=== PATIENT | male | born 1955 | race Caucasian/White ===

== ENCOUNTER 2018-01-29 20:34 | Inpatient (IN) | payer OTHER ==
[~2018-01-29] VITALS: Ht 172.7 cm; Wt 76.2 kg
[~2018-01-29 20:34] MED LIST: BENA40TA PO; IBUP-974 PO; WARF-18 PO
--- NOTE | 2018-01-29 20:40 | NUR ---
BIBA TO ER BED 2
[2018-01-29 20:50] VITALS: BP 142/99
[2018-01-29] MEDS ORDERED: LORazepam 2 MG/ML VIAL IVP ONE (21:00)
[2018-01-29] MEDS ORDERED: MULTIVITAMIN-12 10 ML, THIAMINE 100 MG, MAGNESIUM SULFATE 50% 2,000 MG, FOLIC ACID 5 MG... IV ONE ×5 (21:00)
--- NOTE | 2018-01-29 21:07 | NUR ---
BIBA FOR SHAKINESS AND WEAKNESS X 2 WEEKS. BS 128 ON SCENE.DENIES N/V/D; AAOX4 WITH EVEN AND STEADY GAIT; LUNGS CLEAR BL; PATIENT STATES PAIN OF 0/10 AT THIS TIME; PATIENT POSITIONED FOR COMFORT; HOB ELEVATED; BEDRAILS UP X2; BED DOWN. ER MD MADE AWARE OF PT STATUS.
[2018-01-29] MEDS ORDERED: THIAMINE 200 MG/2 ML VIAL ONE (21:12)
[2018-01-29] MEDS ORDERED: MAGNESIUM SULFATE 50% 1000 MG/2 ML VIAL IV ONE (21:12)
[2018-01-29] MEDS ORDERED: FOLIC ACID 5 MG/ML SYR ONE (21:12)
[2018-01-29] MEDS ORDERED: MULTIVITAMIN-12 10 ML VIAL IV ONE (21:12)
[2018-01-29 21:28] LABS: BARBITURATE, URINE NEG. ng/ml (NEG <=200); BENZODIAZEPINE, URINE NEG. ng/mL (NEG <=200); CANNABINOID, URINE NEG. ng/mL (NEG <=50); COCAINE, URINE NEG. ng/mL (NEG <=300); OPIATE, URINE NEG. ng/mL (NEG <=2000); PHENCYCLIDINE SCREEN,URINE NEG. ng/mL (NEG <=25)
[2018-01-29 22:10] LABS: ANION GAP 17.6 (8-16); CARBON DIOXIDE 28.4 mmol/L (21-32); CHLORIDE 98 mmol/L (98-107); CREATININE 0.9 mg/dL (0.7-1.3); GFR ARICAN-AMERICAN 111 mL/min (>90); GLUCOSE 103 mg/dL (74-106); SODIUM SERUM 141 mmol/L (136-145); UREA NITROGEN, BLOOD 18 mg/dL (7-18)
[2018-01-29 22:17] LABS: ALBUMIN 3.9 g/dL (3.4-5.0); ASPARTATE AMINOTRANSFERASE 110 U/L (15-37); TOTAL BILIRUBIN 1.7 mg/dL (0.0-1.0)
[2018-01-29 22:20] LABS: ACETAMINOPHEN < 0.5 ug/ml (10-30); PROTHROMBIN TIME 12.6 secs (10.8-13.4); SALICYLATE < 2.8 mg/dL (2.8-20.0)
[2018-01-29] MEDS ORDERED: POTASSIUM CHLORIDE 10 MEQ TABER PO ONE (22:30)
[2018-01-29 22:34] LABS: HEMATOCRIT 38.8 % (36-52); HEMOGLOBIN 13.5 g/dL (12.0-18.0); MEAN CORPUSCULAR VOLUME 99 fL (80-94); RED BLOOD CELL COUNT(AUTO) 3.93 MIL/uL (4.20-6.10); WHITE BLOOD COUNT (AUTO) 5.7 K/uL (4.8-10.8)
[2018-01-29 22:35] LABS: MEAN CORPUSCULAR HEMOGLOBIN 34 pg (27-31); MEAN CORPUSCULAR HGB CONC 35 g/dL (33-37); PLATELET COUNT (AUTO) 56 K/uL (140-450); RED CELL DISTRIBUTION WIDTH 12.7 % (11.6-13.7)
[2018-01-29 22:36] LABS: BASOPHILS % (AUTO) 0.2 % (0.0-2.0); LYMPHOCYTES # (AUTO) 0.3 K/uL (2.0-11.5); LYMPHOCYTES % (AUTO) 5.7 % (20.5-51.1); MONOCYTES % (AUTO) 13.1 % (1.7-9.3); NEUTROPHILS # (AUTO) 4.6 K/uL (1.8-7.7)
[2018-01-29 22:37] LABS: MONOCYTES # (AUTO) 0.8 K/uL (0.8-1.0)
[2018-01-29] MEDS ORDERED: KETOROLAC 30 MG/ML VIAL IVP PRN (23:00)
[2018-01-29] MEDS ORDERED: HYDROcodone/APAP 7.5/325 MG 1 TAB PO PRN (23:00)
[2018-01-29] MEDS ORDERED: ACETAMINOPHEN 325 MG TAB PO PRN (23:00)
[2018-01-29] MEDS ORDERED: DOCUSATE SODIUM 100 MG GELCAP PO PRN (23:00)
[2018-01-29] MEDS ORDERED: ONDANSETRON 4 MG/2 ML VIAL IM/IVP PRN (23:00)
--- NOTE | 2018-01-29 23:09 | NUR ---
ICU CHARGE NURSE ROSA CALLING [facility] FOR PT TO BE PUT ON ER HOLD.
[2018-01-29 23:29] LABS: APPEARANCE,URINE CLEAR (CLEAR); BILIRUBIN,URINE 1+ (NEGATIVE); BLOOD, URINE 3+ (NEGATIVE); COLOR,URINE ORANGE (YELLOW); LEUKOCYTE ESTERASE ,URINE NEGATIVE (NEGATIVE); NITRITE, URINE POSITIVE (NEGATIVE); UGLUCOSE NEGATIVE (NEGATIVE)
--- NOTE | 2018-01-29 23:34 | NUR ---
ER DELAY ICU HOLD
[2018-01-29 23:55] LABS: CHOL/HDL RATIO 1.6 (1-4.5); MAGNESIUM 1.5 mg/dL (1.8-2.4); PHOSPHORUS 2.7 mg/dL (2.5-4.9); THYROID STIMULATING HORMONE 2.14 uIU/mL (0.34-3.74)
[2018-01-30 00:16] LABS: RBC,URINE 3-10 (FEW) /HPF (0-5)
[2018-01-30 00:17] LABS: HYALINE CASTS, URINE 0-10 /LPF (None Seen); WBC,URINE 0-5 (RARE) /HPF (0-5)
--- NOTE | 2018-01-30 00:20 | NUR ---
ADMITTED THIS 62 YEAR OLD MALE PATIENT FROM ER PER [facility] DUE TO GENERALIZED BODY WEAKNESS AND SHAKINESS WITH THE ADMITTING DIAGNOSIS OF ETOH WITHDRAWAL; ASSISTED TO ICU 3; HOOKED TO VEGETABLE GROWER. ADMISSION ASSESSMENT/PROTOCOL DONE. PATIENT IS AWAKE, ALERT, ORIENTED X3. CARDIACSCOPE SHOWS ON SINUS RHYTHM HR 90/MIN NO ARRHYTHMIAS SEEN. WITH BANANA BAG IN PROGRESS AT 250 ML/HR VIA G 18 IV CANNULA ON RIGHT WRIST PATENT AND INTACT. BREATHING EVEN AND UNLABORED, ON ROOM AIR. ABDOMEN IS SOFT, NON TENDER; ACTIVE BOWEL SOUNDS. NOTED WITH SHAKING OF BOTH ARMS. WITH BLISTER NOTED ON LEFT GREAT TOE AND SCAB ON RIGHT BIG TOE. MRSA SCREENING OF BOTH NARES, SENT PER PROTOCOL.
--- NOTE | 2018-01-30 01:00 | NUR ---
SEEN AND EXAMINED BY DR. GODOY AND NOTED TO HIM PATIENT'S SKIN ISSUE ON BOTH GREAT TOE;NO NEW ORDER MADE.
[2018-01-30] MEDS: NACL 0.9% 1,000 ML IV SCH ×3 (01:59→18:42)
[2018-01-30] MEDS ORDERED: traZODone 50 MG TAB PO SCH (02:00)
[2018-01-30] MEDS ORDERED: ZOLPIDEM 5 MG TAB PO PRN (02:45)
[2018-01-30 04:00] VITALS: BP 133/75
--- NOTE | 2018-01-30 04:27 | NUR ---
CT HEAD WITHOUT CONTRAST CAN BE DONE IN THE DAY SHIFT ORDERED BY DR. GODOY.
[2018-01-30] MEDS: LORazepam 1 MG TAB PO SCH ×3 (04:41→20:12)
[2018-01-30 05:59] VITALS: BP 146/96
[2018-01-30 06:00] LABS: ANION GAP 14.3 (8-16); CARBON DIOXIDE 29.9 mmol/L (21-32); CREATININE 0.8 mg/dL (0.7-1.3); POTASSIUM 3.2 mmol/L (3.5-5.1)
[2018-01-30 06:40] LABS: WHITE BLOOD COUNT (AUTO) 4.6 K/uL (4.8-10.8)
[2018-01-30 06:41] LABS: HEMATOCRIT 37.5 % (36-52); MEAN CORPUSCULAR HEMOGLOBIN 34 pg (27-31); MEAN CORPUSCULAR HGB CONC 35 g/dL (33-37); MEAN CORPUSCULAR VOLUME 99 fL (80-94); PLATELET COUNT (AUTO) 55 K/uL (140-450); RED BLOOD CELL COUNT(AUTO) 3.77 MIL/uL (4.20-6.10); RED CELL DISTRIBUTION WIDTH 12.8 % (11.6-13.7)
[2018-01-30 06:42] LABS: BASOPHILS % (AUTO) 0.5 % (0.0-2.0); EOSINOPHILS % (AUTO) 0.4 % (0.0-4.0); LYMPHOCYTES # (AUTO) 0.9 K/uL (2.0-11.5); LYMPHOCYTES % (AUTO) 19.6 % (20.5-51.1); MONOCYTES # (AUTO) 0.7 K/uL (0.8-1.0); MONOCYTES % (AUTO) 14.9 % (1.7-9.3); NEUTROPHILS % (AUTO) 64.6 % (42.2-75.2)
--- NOTE | 2018-01-30 07:30 | NUR ---
OBTAINED REPORT FROM ROSA RN AT BEDSIDE, PT IS AAOX4, ABLE TO FOLLOW COMMANDS AND MAKE NEEDS KNOWN, HANDS SHAKING NOTED, VSS, DENIES PAIN, NO S/S OF DISTRESS, CLEAR LUNG SOUNDS, ON RA, SR ON TELE MONITOR, DENIES CP, SOFT ABDOMEN WITH ACTIVE BOWEL SOUNDS, CONTINENT WITH B&B'S, SEVERER WEAKNESS TO BLE NOTED, IV SITE TO RIGHT WRIST 18GA, RUNNING NS AT 120ML/HR, SKIN IS WARM AND DRY TO TOUCH, OPEN BLISTER NOTED TO LEFT GREAT TOE. EXPLAINED THE POC TO PT, PT VERBALIZED UNDERSTANDING, SAFETY MEASURE IN PLACE, HOB ELEVATED, CALL LIGHT WITHIN REACH, WILL CONTINUE TO MONITOR.
[2018-01-30 08:00] VITALS: BP 105/67
[2018-01-30] MEDS ORDERED: POTASSIUM CHLORIDE 40 MEQ, LIDOCAINE 1% 25 MG in NACL 0.9% 250 ML IV SCH (08:00)
[2018-01-30] MEDS: FOLIC ACID 1 MG TAB PO SCH (08:16)
[2018-01-30] MEDS: MULTIVITAMIN 1 TAB PO SCH (08:17)
[2018-01-30] MEDS: THIAMINE 100 MG TAB PO SCH (08:17)
[2018-01-30] MEDS: LORazepam 1 MG TAB PO PRN ×3 (08:20→16:58)
--- NOTE | 2018-01-30 08:56 | NUR ---
PATIENT HAS BEEN SCREENED AND CATEGORIZED LOW NUTRITION RISK. PATIENT WILL BE SEEN WITHIN 7 DAYS OF ADMISSION. 02/04/[address] Addendum: 02/03/18 at [address] D/T CHANGE IN PATIENT DIET, PATIENT HAS BEEN RESCREENED AND RECATEGORIZED MODERATE NUTRITION RISK. PATIENT WILL BE SEEN WITHIN 3-5 DAYS OF ADMISSION. 02/01/18 - 02/03/[address]
[2018-01-30] MEDS ORDERED: BENAZEPRIL 5 MG TAB PO SCH (09:00)
[2018-01-30] MEDS ORDERED: POTASSIUM CHLORIDE 10 MEQ TABER PO SCH (09:00)
--- NOTE | 2018-01-30 09:00 | NUR ---
SCHEDULED MEDICATION GIVEN ORDERED, PT IS SHAKING, VERY WEAK, COULD NOT GET UP THE BED. ATIVAN GIVEN, PT TOLERATED WELL.
--- NOTE | 2018-01-30 09:45 | NUR ---
PT TOOK TO CT VIA BED WITH RN AND AEROBICS TEACHER AT BEDSIDE.
[2018-01-30 12:00] VITALS: BP 160/54
[2018-01-30] MEDS: LORazepam 2 MG/ML VIAL IM/IVP PRN ×2 (14:00→21:40)
--- NOTE | 2018-01-30 14:00 | NUR ---
PT HAVING SYMPTOM OF ALCOHOL WITHDRAW, SHAKING AND UNABLE TO FOLLOW COMMANDS, KICKING AND TALKING DIRTY WORDS, TRYING TO GET OUT THE BED, MD AWARE, ATIVAN GIVEN.
[2018-01-30] MEDS ORDERED: MIDAZOLAM 2 MG/2 ML VIAL IM ONE (14:35)
[2018-01-30] MEDS ORDERED: LORazepam 2 MG/ML VIAL IM SCH ×2 (14:37→15:34)
--- NOTE | 2018-01-30 14:40 | NUR ---
DR. MCPHERSON CAME TO EVALUATE PT, PT IS STILL SHAKING, KICKING, AND TRYING TO GET OUT OF BED, ANOTHER DOSE OF ATIVAN GIVEN ORDERED, WILL CONTINUE TO MONITOR.
[2018-01-30 16:00] VITALS: BP 159/83
--- NOTE | 2018-01-30 16:30 | NUR ---
PT IS EVERY AGITATED, PULLED OUT IV SITE, KICKING AND RESTLESSNESS, ATIVAN GIVEN THIRD DOSE, USED TWO POINT SOFT WRIST RESTRAIN AT THIS TIME TO PROTECT PT TO HURT HIMSELF AND OTHERS.
[2018-01-30] MEDS: WARFARIN 5 MG TAB PO SCH (16:57)
--- NOTE | 2018-01-30 19:15 | NUR ---
RECEIVED REPORT FROM TING MCQUEEN FOR CONTINUITY OF CARE. VS STABLE AT THIS TIME. PT ASLEEP. OPENS EYES TO NAME. PT AFEBRILE. SR ON MONITOR. PULSES PALPABLE IN EXTREMITIES. PT IN ROOM AIR. LUNG SOUNDS CLEAR. NO SIGN OF RESPIRATORY DISTRESS NOTED. ABDOMEN ROUND, SOFT AND NONDISTENDED. PT HAS RIGHT WRIST PERIPHERAL IV 18G. LINE PATENT AND ASYMPTOMATIC. PT HAS IVF NS RUNNING. BED AT LOW POSSIBLE POSITION. HOB 30 DEGREES. RECEIVE PT ON RESTRAINTS NO SIGNS OF INJURY NOTED. WILL CONTINUE TO MONITOR PT.
[2018-01-30 20:00] VITALS: BP 143/91
[2018-01-30] MEDS: traZODone 50 MG TAB PO SCH (20:14)
[2018-01-30] MEDS: POTASSIUM CHLORIDE 10 MEQ TABER PO SCH (20:14)
--- NOTE | 2018-01-30 20:40 | NUR ---
ABDOMINAL US ATTEMPTED TO BE DONE, BUT PT KEPT REFUSING AND BECAME INCREASINGLY AGITATED. PT ATTEMPTED TO KICK STAFF. PT KEPT SHAKING AND PER US TECH, THE IMAGE MAY NOT COME OUT RIGHT AND MAY NOT BE FINISHED SINCE PT IS INCREASINGLY AGITATED. WILL TRY AGAIN IN THE MORNING TO GET US.
--- NOTE | 2018-01-30 21:25 | NUR ---
PT INCREASINGLY AGITATED. PT RESTLESS AND TRYING TO KICK NURSES. PT ALSO CUSSING AT NURSES. MADE AWARE.
[2018-01-30] MEDS ORDERED: LORazepam 2 MG/ML VIAL ONE (21:43)
[2018-01-31] VITALS: BP 143/90
--- NOTE | 2018-01-31 00:20 | NUR ---
PT ASLEEP. STILL HAS RESTRAINTS IN PLACE. NO INJURY NOTED. VS STABLE AT THIS TIME. NO CHANGE IN CONDITION. ALL SAFETY PRECAUTIONS ARE IN PLACE. WILL CONTINUE TO MONITOR PT.
[2018-01-31] MEDS: LORazepam 2 MG/ML VIAL IM/IVP PRN (02:02)
--- NOTE | 2018-01-31 02:18 | NUR ---
PT VS STABLE AT THIS TIME. NO SIGNS OF PAIN OR DISTRESS NOTED. SR ON MONITOR. PT STILL ON RESTRAINTS. NO SIGNS OF INJURY NOTED. ALL SAFETY PRECAUTIONS ARE IN PLACE. WILL CONTINUE TO MONITOR PT.
[2018-01-31 04:00] VITALS: BP 145/98
--- NOTE | 2018-01-31 04:30 | NUR ---
PT CLEANED AND LINENS CHANGED. PT HAD NO BM THROUGHOUT SHIFT. PT STILL ON RESTRAINTS. PT BEING COMBATIVE AND HAD TO PAGE SECURITY TO ASSIST WITH THE PT. AFTER CLEANING UP THE PT, THE PT CALMED DOWN. PT FELL ASLEEP
[2018-01-31] MEDS: NACL 0.9% 1,000 ML IV SCH ×2 (05:43→22:33)
[2018-01-31] MEDS: LORazepam 1 MG TAB PO SCH ×3 (05:52→21:19)
--- NOTE | 2018-01-31 05:55 | NUR ---
PT TRANSFERRED TO [facility]/TELE. REPORT GIVEN TO SNOW MAGUIRE FOR CONTINUITY OF CARE.
[2018-01-31 06:05] VITALS: BP 113/81
--- NOTE | 2018-01-31 06:05 | NUR ---
RECEIVED REPORT FROM AM NURSE. PT RESTING COMFORTABLY IN BED, AOX3, BEDREST AT THIS TIME WITH GENERALIZED WEAKNESS. SLIGHT TREMORS NOTED. MINESWEEPING OFFICER IN PLACE. RR 16 EVEN AND UNLABORED, SPO2 97% ON ROOM AIR. NO S/S OF ACUTE DISTRESS. PT WAS COMBATIVE IN ICU, SOFT WRIST RESTRAINTS REMOVED AT THIS TIME DUE TO PT CALM WITH EDUCATION AND SLEEPING COMFORTABLY. IV ACCESS ASYMPTOMATIC, PATENT AND INTACT, WILL ADMINISTER IVF ORDERED. DISCUSSED AND REVIEWED PLAN OF CARE WITH PT, PT NODDED IN AGREEMENT. ALL NEEDS MET. SAFETY MEASURES ENSURED. CALL LIGHT WITHIN REACH.
[2018-01-31 06:17] LABS: T4 (THYROXINE) 6.3 ug/dL (4.5-12.0)
[2018-01-31 06:52] LABS: BASOPHILS # (AUTO) 0.3 K/uL (0.00-0.22); BASOPHILS % (AUTO) 4.7 % (0.0-2.0); EOSINOPHILS % (AUTO) 0.7 % (0.0-4.0); HEMATOCRIT 42.6 % (36-52); HEMOGLOBIN 14.5 g/dL (12.0-18.0); LYMPHOCYTES # (AUTO) 1.2 K/uL (2.0-11.5); LYMPHOCYTES % (AUTO) 20.4 % (20.5-51.1); MEAN CORPUSCULAR HEMOGLOBIN 34 pg (27-31); MEAN CORPUSCULAR HGB CONC 34 g/dL (33-37); MEAN CORPUSCULAR VOLUME 100 fL (80-94); MONOCYTES # (AUTO) 0.9 K/uL (0.8-1.0); MONOCYTES % (AUTO) 14.6 % (1.7-9.3); NEUTROPHILS # (AUTO) 3.5 K/uL (1.8-7.7); NEUTROPHILS % (AUTO) 59.6 % (42.2-75.2); RED BLOOD CELL COUNT(AUTO) 4.25 MIL/uL (4.20-6.10); RED CELL DISTRIBUTION WIDTH 11.9 % (11.6-13.7); WHITE BLOOD COUNT (AUTO) 5.9 K/uL (4.8-10.8)
[2018-01-31 06:53] LABS: PLATELET COUNT (AUTO) 57 K/uL (140-450)
--- NOTE | 2018-01-31 07:10 | NUR ---
RECEIVED PATIENT FROM NIGHTSHIFT NURSE. BEDSIDE REPORT WAS GIVEN AT BEDSIDE. PATIENT IS LAYING IN BED SLEEPING BUT AROUSABLE. REORIENTED PATIENT OF THE DATE TODAY. PATIENT BREATHING IS WITHIN NORMAL LIMITS AT THIS TIME. TREMORS ARE NOTED ON PATIENT'S UPPER EXTREMITIES AND BODY. PATIENT IS ON RESTRAINTS OF HIS WRISTS AND TIED TO THE BASE OF THE BED. PATIENT'S SKIN IS INTACT UPON TAKING OFF RESTRAINTS. PATIENT HAS AN IV NOTED ON HIS RIGHT WRIST 18G. NO SIGNS OF PAIN AT THIS TIME. UPDATED BOARD AND MADE SURE SIGNS ARE ON PATIENT'S DOOR. LOWERED BED TO LOWEST SETTING. WILL CONTINUE TO MONITOR PATIENT.
--- NOTE | 2018-01-31 07:10 | NUR ---
ENDORSED PLAN OF CARE TO AM NURSE. CONDITION STABLE.
[2018-01-31 07:32] LABS: PROTHROMBIN TIME 11.4 secs (10.8-13.4)
[2018-01-31 07:33] LABS: ANION GAP 14.5 (8-16); CREATININE 0.6 mg/dL (0.7-1.3); POTASSIUM 3.5 mmol/L (3.5-5.1)
[2018-01-31] MEDS ORDERED: BENAZEPRIL 5 MG TAB PO SCH (09:00)
--- NOTE | 2018-01-31 09:00 | NUR ---
PATIENT IS ASLEEP AT THIS TIME. BREATHING WITHIN NORMAL LIMITS AND NO SIGNS OF RESPIRATORY DISTRESS OR RESPIRATORY DEPRESSION. WILL CONTINUE TO MONITOR PATIENT.
[2018-01-31] MEDS: FOLIC ACID 1 MG TAB PO SCH (10:40)
[2018-01-31] MEDS: POTASSIUM CHLORIDE 10 MEQ TABER PO SCH ×2 (10:40→21:16)
[2018-01-31] MEDS: guaiFENesin 600 MG TABER PO SCH ×2 (10:41→21:17)
[2018-01-31] MEDS: MULTIVITAMIN 1 TAB PO SCH (10:41)
[2018-01-31] MEDS: BENAZEPRIL 20 MG TAB PO SCH (10:41)
[2018-01-31] MEDS: THIAMINE 100 MG TAB PO SCH (10:41)
[2018-01-31] MEDS: FLUTICASONE NASAL 50 MCG/ACTUATION 16 GM BTL NS SCH (10:59)
[2018-01-31] MEDS: AMOXIL/CLAVULANATE 875/125 MG 1 TAB PO SCH ×2 (11:01→21:17)
--- NOTE | 2018-01-31 11:54 | NUR ---
PATIENT IS AWAKE RIGHT NOW. PATIENT IS CONFUSED AND TRYING TO GET OUT OF BED. BED ALARM IS ON FOR PATIENT. WILL CONTINUE TO MONITOR PATIENT.
--- NOTE | 2018-01-31 13:30 | NUR ---
PATIENT RESTING IN BED. NO SIGNS OF PAIN OR RESPIRATORY DISTRESS. WILL CONTINUE TO MONITOR PATIENT.
--- NOTE | 2018-01-31 15:00 | NUR ---
PATIENT ASLEEP AT THIS TIME. PATIENT SHOWS NO SIGNS OF RESPIRATORY DISTRESS OR RESPIRATORY DEPRESSION. WILL CONTINUE TO MONITOR PATIENT.
[2018-01-31 16:00] VITALS: BP 126/80
--- NOTE | 2018-01-31 17:02 | NUR ---
TOOK PATIENT OFF RESTRAINTS. PATIENT IS ALERT AND ORIENTED X3 AT THIS TIME. INSTRUCTED PATIENT TO CALL IF HE NEEDS ASSISTANCE WITH ANYTHING. INSTRUCTED PATIENT TO NOT GET UP WITHOUT ANY ASSISTANCE. WILL CONTINUE TO MONITOR PATIENT.
[2018-01-31] MEDS: WARFARIN 5 MG TAB PO SCH (18:24)
--- NOTE | 2018-01-31 18:24 | NUR ---
GAVE PATIENT EDUCATION ON WARF[place]IN AND WHAT HE SHOULD KNOW. PATIENT NEEDS REINFORCEMENT WITH TEACHINGS. HANDOUT GIVEN TO PATIENT. PATIENT UNABLE TO SIGN AT THIS TIME.
--- NOTE | 2018-01-31 19:22 | NUR ---
GAVE PATIENT REPORT TO NURSE AT BEDSIDE. PATIENT IN STABLE CONDITION.
--- NOTE | 2018-01-31 19:23 | NUR ---
RECEIVED BEDSIDE REPORT FROM DAY SHIFT NURSE JAMES MAGUIRE, PT STABLE, NO DISTRESS NOTED, IV TO R FA 22G RUNNING NS @ 60ML/HR, INFUSING WELL, PT ON ROOM AIR NO SOB, PT CALM AND COOPERATIVE, RESTING ON BED, INITIAL ASSESSMENT DONE, ALL SAFETY PRECAUTION MET, WILL CONTINUE TO MONITOR. Addendum: 01/31/18 at 2019 by Rosa Elena Rao RN PT NO LONGER ON RESTRAINTS. Addendum: 02/01/18 at 0638 by Rosa Elena Rao RN NOTED SCABS ON R ELBOW, HEALING.
--- NOTE | 2018-01-31 21:17 | NUR ---
DUE MEDICATION GIVEN, PT TOLERATED WELL, NO DISTRESS NOTED, CALL LIGHT WITHIN REACH, WILL CONTINUE TO MONITOR.
[2018-01-31] MEDS: traZODone 50 MG TAB PO SCH (21:18)
[2018-02-01] VITALS: BP 103/60
--- NOTE | 2018-02-01 00:01 | NUR ---
CHECKED ON PT, PT SLEEPING, NO DISTRESS NOTED, CALL LIGHT WITHIN REACH, WILL CONTINUE TO MONITOR.
--- NOTE | 2018-02-01 02:05 | NUR ---
CHECKED ON PT, PT SLEEPING, NO DISTRESS NOTED, CALL LIGHT WITHIN REACH, WILL CONTINUE TO MONITOR.
[2018-02-01] MEDS: LORazepam 1 MG TAB PO SCH ×3 (05:01→20:19)
--- NOTE | 2018-02-01 05:08 | NUR ---
PT C/O PAIN 07/03 ON THE R LEG, NO SWELLING, PT STABLE, NO DISTRESS, RESTING IN BED, NOTIFIED DR. TAMEZ, STATED WILL SEE PT AFTER, HE IS WITH ANOTHER PT. WILL CONTINUE TO MONITOR. Addendum: 02/01/18 at 0511 by Rosa Elena Rao RN WHEN ASKED PT STATED DOES NOT WANT TO TAKE TYLENOL BECAUSE TYLENOL DOES NOTHING FOR HIM.
--- NOTE | 2018-02-01 05:28 | NUR ---
DR. TAMEZ TALKED TO PT, STATED THAT HE WILL PUT IN ORDERS, IN THE MEAN TIME FOR PT TO TAKE TYLENOL, PT STATED UNDERSTANDING AND THAT HE WILL TAKE THE TYLENOL. TYLENOL GIVEN, PT TOLERATED WELL, NO DISTRESS NOTED, CALL LIGHT WITHIN REACH, WILL CONTINUE TO MONITOR.
[2018-02-01 06:58] LABS: BASOPHILS # (AUTO) 0.2 K/uL (0.00-0.22); BASOPHILS % (AUTO) 4.6 % (0.0-2.0); EOSINOPHILS # (AUTO) 0.1 K/uL (0-0.4); EOSINOPHILS % (AUTO) 1.6 % (0.0-4.0); HEMATOCRIT 35.4 % (36-52); HEMOGLOBIN 12.2 g/dL (12.0-18.0); LYMPHOCYTES # (AUTO) 0.8 K/uL (2.0-11.5); LYMPHOCYTES % (AUTO) 14.9 % (20.5-51.1); MEAN CORPUSCULAR HEMOGLOBIN 34 pg (27-31); MEAN CORPUSCULAR HGB CONC 35 g/dL (33-37); MEAN CORPUSCULAR VOLUME 99 fL (80-94); MONOCYTES # (AUTO) 0.9 K/uL (0.8-1.0); MONOCYTES % (AUTO) 17.5 % (1.7-9.3); NEUTROPHILS # (AUTO) 3.3 K/uL (1.8-7.7); NEUTROPHILS % (AUTO) 61.4 % (42.2-75.2); PLATELET COUNT (AUTO) 60 K/uL (140-450); RED BLOOD CELL COUNT(AUTO) 3.58 MIL/uL (4.20-6.10); RED CELL DISTRIBUTION WIDTH 11.9 % (11.6-13.7); WHITE BLOOD COUNT (AUTO) 5.3 K/uL (4.8-10.8)
--- NOTE | 2018-02-01 07:21 | NUR ---
ENDORSED PLAN OF CARE TO DAY SHIFT NURSE PATTI MAGUIRE, PT STABLE, NO DISTRESS NOTED, CALL LIGHT WITHIN REACH. Addendum: 02/01/18 at 0721 by Rosa Elena Rao RN JAMES MAGUIRE
--- NOTE | 2018-02-01 07:21 | NUR ---
RECEIVED PATIENT FROM NIGHTSHIFT NURSE. PATIENT IS ASLEEP BUT AROUSABLE. PATIENT'S BREATHING IS WITHIN NORMAL LIMITS. PATIENT SHOWS NO SIGNS OF PAIN. NO SIGNS OF WITHDRAWAL AT THIS TIME. PATIENT HAS CALL LIGHT WITHIN REACH. UPDATED BOARD OF PATIENT. WILL FREQUENTLY MONITOR PATIENT.
[2018-02-01 08:00] VITALS: BP 128/80
[2018-02-01 08:19] LABS: ANION GAP 12.6 (8-16); CARBON DIOXIDE 26.5 mmol/L (21-32); CREATININE 0.7 mg/dL (0.7-1.3); POTASSIUM 3.1 mmol/L (3.5-5.1)
[2018-02-01 08:21] LABS: PROTHROMBIN TIME 11.9 secs (10.8-13.4)
[2018-02-01] MEDS: BENAZEPRIL 20 MG TAB PO SCH (09:00)
[2018-02-01] MEDS: FOLIC ACID 1 MG TAB PO SCH (09:28)
[2018-02-01] MEDS: guaiFENesin 600 MG TABER PO SCH ×2 (09:29→20:18)
[2018-02-01] MEDS: THIAMINE 100 MG TAB PO SCH (09:29)
[2018-02-01] MEDS: MULTIVITAMIN 1 TAB PO SCH (09:29)
[2018-02-01] MEDS: AMOXIL/CLAVULANATE 875/125 MG 1 TAB PO SCH ×2 (09:30→20:17)
[2018-02-01] MEDS: FLUTICASONE NASAL 50 MCG/ACTUATION 16 GM BTL NS SCH (09:30)
[2018-02-01] MEDS: POTASSIUM CHLORIDE 10 MEQ TABER PO SCH ×2 (09:30→20:20)
[2018-02-01] MEDS: LACTULOSE 20 GM/30 ML UDC PO SCH (09:31)
[2018-02-01] MEDS: LORazepam 2 MG/ML VIAL IVP PRN (10:38)
--- NOTE | 2018-02-01 10:38 | NUR ---
PATIENT PRESENTS WITH SHAKING OF THE UPPER EXTREMITIES AND UPPER BODY. ADMINISTERED 1MG/.5ML ATIVAN IVP PER DOCTORS ORDER. PATIENT TOLERATED WELL. WILL CONTINUE TO MONITOR PATIENT.
--- NOTE | 2018-02-01 11:13 | NUR ---
PATIENT RESTING IN BED. NO COMPLAINTS OF PAIN. RESPIRATIONS ARE WITHIN NORMAL LIMITS. WILL CONTINUE TO MONITOR PATIENT.
[2018-02-01] MEDS ORDERED: POTASSIUM CHLORIDE 40 MEQ, LIDOCAINE 1% 25 MG in NACL 0.9% 250 ML IV ONE (11:25)
--- NOTE | 2018-02-01 13:30 | NUR ---
PATIENT RESTING IN BED. NO COMPLAINTS OF PAIN. WILL CONTINUE TO MONITOR PATIENT.
--- NOTE | 2018-02-01 14:50 | NUR ---
PATIENT ASLEEP AT THIS TIME. RESPIRATIONS ARE WITHIN NORMAL LIMITS. PATIENT SHOWS NO SIGNS OF PAIN. WILL CONTINUE TO MONITOR PATIENT.
[2018-02-01] MEDS: NACL 0.9% 1,000 ML IV SCH (15:03)
[2018-02-01 16:00] VITALS: BP 128/79
--- NOTE | 2018-02-01 16:00 | NUR ---
GAVE COUMADIN INSTRUCTIONS TO PATIENT. PATIENT NEEDS REINFORCEMENT WITH TEACHINGS. HANDOUT WAS GIVEN TO PATIENT.
[2018-02-01] MEDS ORDERED: WARFARIN 2.5 MG, WARFARIN 5 MG PO SCH ×2 (17:00)
--- NOTE | 2018-02-01 18:52 | NUR ---
PATIENT EATING HIS DINNER AT THIS TIME. PATIENT ALSO WATCHING TELEVISION. PATIENT SHOWS NO SIGNS OF PAIN OR RESPIRATORY DISTRESS. WILL CONTINUE TO MONITOR PATIENT.
--- NOTE | 2018-02-01 19:30 | NUR ---
GAVE REPORT TO NIGHTSHIFT NURSE. PATIENT IN STABLE CONDITION.
--- NOTE | 2018-02-01 19:31 | NUR ---
RECEIVED BEDSIDE REPORT FROM DAY SHIFT NURSE JAMES RN, PT STABLE, NO DISTRESS NOTED, IV TO R FA 18G INFUSING NS @ 60M/HR, PT ON ROOM AIR NO SOB, INITIAL ASSESSMENT DONE, ALL SAFETY PRECAUTION MET, WILL CONTINUE TO MONITOR.
[2018-02-01] MEDS: traZODone 50 MG TAB PO SCH (20:19)
--- NOTE | 2018-02-01 20:20 | NUR ---
DUE MEDICATION GIVEN, PT TOLERATED WELL, NO DISTRESS NOTED, CALL LIGHT WITHIN REACH, WILL CONTINUE TO MONITOR.
--- NOTE | 2018-02-01 21:20 | NUR ---
FOUND PT SITTING ON FLOOR, PT STABLE, NO DISTRESS NOTED, HELPED PT BACK ON THE BED, ORIENT PT AGAIN TO CALL WHEN NEED HELP, AND NOT TO LEAVE BED, PT STATED UNDERSTANDING. CALL LIGHT WITHIN REACH, WILL CONTINUE TO MONITOR.
[2018-02-02] VITALS: BP 149/87
--- NOTE | 2018-02-02 00:10 | NUR ---
PT ATTEMPTED TO LEAVE THE BED AGAIN, ORIENT PT TO CALL LIGHT AGAIN, PT STATED UNDERSTANDING, WILL CONTINUE TO MONITOR.
[2018-02-02] MEDS: LORazepam 2 MG/ML VIAL IVP PRN (01:51)
--- NOTE | 2018-02-02 01:51 | NUR ---
PT TRIED TO GO OUT OF BED AGAIN, STATED THERE ARE PEOPLE TRYING TO GET INTO THE ROOM. ATIVAN GIVEN, PT TOLERATED WELL, NO DISTRESS NOTED, CALL LIGHT WITHIN REACH, WILL CONTINUE TO MONITOR.
--- NOTE | 2018-02-02 03:47 | NUR ---
PT LEFT FOR CT VIA BED, ACCOMPANIED BY AUCTION ASSISTANT AND BIOSTATISTICS TEACHER. PT STABLE, NO DISTRESS NOTED.
--- NOTE | 2018-02-02 04:09 | NUR ---
PT CAME BACK FROM CT, NO DISTRESS NOTED, CALL LIGHT WITHIN REACH, WILL CONTINUE TO MONITOR.
[2018-02-02] MEDS: LORazepam 1 MG TAB PO SCH ×3 (04:47→20:44)
[2018-02-02 06:13] LABS: BASOPHILS # (AUTO) 0.1 K/uL (0.00-0.22); BASOPHILS % (AUTO) 2.5 % (0.0-2.0); EOSINOPHILS # (AUTO) 0.1 K/uL (0-0.4); EOSINOPHILS % (AUTO) 1.9 % (0.0-4.0); HEMATOCRIT 36.5 % (36-52); HEMOGLOBIN 12.6 g/dL (12.0-18.0); LYMPHOCYTES # (AUTO) 1.3 K/uL (2.0-11.5); LYMPHOCYTES % (AUTO) 22.8 % (20.5-51.1); MEAN CORPUSCULAR HEMOGLOBIN 34 pg (27-31); MEAN CORPUSCULAR HGB CONC 35 g/dL (33-37); MEAN CORPUSCULAR VOLUME 100 fL (80-94); MONOCYTES # (AUTO) 1.1 K/uL (0.8-1.0); MONOCYTES % (AUTO) 18.8 % (1.7-9.3); NEUTROPHILS # (AUTO) 3.2 K/uL (1.8-7.7); PLATELET COUNT (AUTO) 81 K/uL (140-450); RED BLOOD CELL COUNT(AUTO) 3.67 MIL/uL (4.20-6.10); RED CELL DISTRIBUTION WIDTH 11.9 % (11.6-13.7); WHITE BLOOD COUNT (AUTO) 5.8 K/uL (4.8-10.8)
[2018-02-02 06:34] LABS: ANION GAP 13.3 (8-16); CARBON DIOXIDE 25.5 mmol/L (21-32); CREATININE 0.8 mg/dL (0.7-1.3); POTASSIUM 3.8 mmol/L (3.5-5.1)
[2018-02-02 06:37] LABS: PROTHROMBIN TIME 13.4 secs (10.8-13.4)
[2018-02-02] MEDS ORDERED: LISINOPRIL 20 MG TAB PO SCH (06:50)
--- NOTE | 2018-02-02 07:24 | NUR ---
ENDORSED PLAN OF CARE TO DAY SHIFT NURSE KY RN, PT STABLE, NO DISTRESS NOTED, CALL LIGHT WITHIN REACH.
--- NOTE | 2018-02-02 07:25 | NUR ---
RECEIVED BEDSIDE REPORT FROM SUPERVISOR ADVICE NURSE. PT STABLE, NO DISTRESS NOTED, IV TO R FA 18G INFUSING NS @ 60M/HR, PT ON ROOM AIR NO SOB, INITIAL ASSESSMENT DONE, ALL SAFETY PRECAUTION MET, WILL CONTINUE TO MONITOR.
[2018-02-02] MEDS: NACL 0.9% 1,000 ML IV SCH (07:43)
[2018-02-02 08:00] VITALS: BP 160/105
[2018-02-02] MEDS: LACTULOSE 20 GM/30 ML UDC PO SCH (09:19)
[2018-02-02] MEDS: BENAZEPRIL 20 MG TAB PO SCH (09:19)
[2018-02-02] MEDS: FOLIC ACID 1 MG TAB PO SCH (09:19)
[2018-02-02] MEDS: MULTIVITAMIN 1 TAB PO SCH (09:20)
[2018-02-02] MEDS: guaiFENesin 600 MG TABER PO SCH ×2 (09:20→20:45)
[2018-02-02] MEDS: POTASSIUM CHLORIDE 10 MEQ TABER PO SCH ×2 (09:20→20:45)
[2018-02-02] MEDS: AMOXIL/CLAVULANATE 875/125 MG 1 TAB PO SCH ×2 (09:20→20:45)
[2018-02-02] MEDS: THIAMINE 100 MG TAB PO SCH (09:20)
--- NOTE | 2018-02-02 09:20 | NUR ---
ADMINISTERED ORDERED MEDICATIONS. PATIENT TOLERATED THEM WELL. SAFETY PRECAUTION IN PLACE, CALL LIGHT WITHIN REACH, WILL CONTINUE TO MONITOR PATIENT.
[2018-02-02] MEDS: FLUTICASONE NASAL 50 MCG/ACTUATION 16 GM BTL NS SCH (09:21)
--- NOTE | 2018-02-02 09:35 | NUR ---
DR. KIMBALL IN TO SEE THE PATIENT. UPDATED HIM WITH HIS PLAN OF CARE, PATIENT VERBALIZED UNDERSTANDING. SAFETY PRECAUTION IN PLACE, CALL LIGHT WITHIN REACH, WILL CONTINUE TO MONITOR PATIENT.
--- NOTE | 2018-02-02 13:34 | NUR ---
ADMINISTERED ORDERED MEDICATIONS. PATIENT TOLERATED THEM WELL. SAFETY PRECAUTION IN PLACE, CALL LIGHT WITHIN REACH, WILL CONTINUE TO MONITOR PATIENT.
[2018-02-02 16:00] VITALS: BP 150/94
[2018-02-02] MEDS ORDERED: WARFARIN 5 MG TAB PO SCH (17:00)
--- NOTE | 2018-02-02 17:32 | NUR ---
ADMINISTERED ORDERED MEDICATIONS. PATIENT TOLERATED THEM WELL. SAFETY PRECAUTION IN PLACE, CALL LIGHT WITHIN REACH, WILL CONTINUE TO MONITOR PATIENT.
--- NOTE | 2018-02-02 19:25 | NUR ---
REPORT GIVEN TO DIRECTOR MEDICAL SCIENCE NURSE AT BEDSIDE FOR CONTINUITY OF CARE. PATIENT IN STABLE CONDITION.
--- NOTE | 2018-02-02 19:26 | NUR ---
PATIENT REPORT RECEIVED FROM MORNING NURSE AT BEDSIDE. PATIENT IS AWAKE AND ALERT. NO SIGNS AND SYMPTOMS OF DISTRESS NOTED. NO COMPLAINTS OF PAIN AT THIS TIME. IV SITE NOTED ON RIGHT ARM, IVF INFUSING WELL. PLAN OF CARE DISCUSSED WITH PATIENT. PATIENT VERBALIZED UNDERSTANDING. BED IN LOWEST POSITION, SIDE RAILS UP AND CALL LIGHT WITHIN REACH. WILL CONTINUE TO MONITOR.
--- NOTE | 2018-02-02 20:30 | NUR ---
TIPPLE OILER ASSISTED PATIENT TO BEDSIDE COMMODE. PATIENT VOIDED AND HAD A BM. PERICARE DONE. PATIENT ASSISTED BACK TO BED.
[2018-02-02] MEDS: traZODone 50 MG TAB PO SCH (20:45)
[2018-02-03] VITALS: BP 142/86
--- NOTE | 2018-02-03 | NUR ---
CHECKED ON PATIENT. PATIENT IS ASLEEP. NO SIGNS AND SYMPTOMS OF DISTRESS NOTED. BREATHING EVEN AND UNLABORED. WILL CONTINUE TO MONITOR.
[2018-02-03] MEDS: NACL 0.9% 1,000 ML IV SCH (00:23)
[2018-02-03] MEDS: LORazepam 2 MG/ML VIAL IVP PRN ×3 (03:40→22:26)
[2018-02-03] MEDS: LORazepam 1 MG TAB PO SCH (05:47)
[2018-02-03 06:06] LABS: BASOPHILS # (AUTO) 0.1 K/uL (0.00-0.22); BASOPHILS % (AUTO) 2.2 % (0.0-2.0); EOSINOPHILS # (AUTO) 0.1 K/uL (0-0.4); EOSINOPHILS % (AUTO) 1.3 % (0.0-4.0); HEMATOCRIT 36.1 % (36-52); HEMOGLOBIN 12.5 g/dL (12.0-18.0); LYMPHOCYTES # (AUTO) 0.6 K/uL (2.0-11.5); LYMPHOCYTES % (AUTO) 9.2 % (20.5-51.1); MEAN CORPUSCULAR HEMOGLOBIN 34 pg (27-31); MEAN CORPUSCULAR HGB CONC 35 g/dL (33-37); MEAN CORPUSCULAR VOLUME 99 fL (80-94); MONOCYTES # (AUTO) 1.5 K/uL (0.8-1.0); MONOCYTES % (AUTO) 22.8 % (1.7-9.3); NEUTROPHILS # (AUTO) 4.1 K/uL (1.8-7.7); NEUTROPHILS % (AUTO) 64.5 % (42.2-75.2); PLATELET COUNT (AUTO) 119 K/uL (140-450); RED BLOOD CELL COUNT(AUTO) 3.63 MIL/uL (4.20-6.10); RED CELL DISTRIBUTION WIDTH 11.9 % (11.6-13.7)
[2018-02-03 06:42] LABS: ANION GAP 13.7 (8-16); CARBON DIOXIDE 23.8 mmol/L (21-32); CREATININE 0.7 mg/dL (0.7-1.3); POTASSIUM 3.5 mmol/L (3.5-5.1)
[2018-02-03 06:45] LABS: PROTHROMBIN TIME 18.6 secs (10.8-13.4)
[2018-02-03 07:02] LABS: WHITE BLOOD COUNT (AUTO) 6.4 K/uL (4.8-10.8)
--- NOTE | 2018-02-03 07:22 | NUR ---
PATIENT REPORT GIVEN TO MORNING NURSE AT BEDSIDE FOR CONTINUITY OF CARE. PATIENT IS IN STABLE CONDITION
--- NOTE | 2018-02-03 07:23 | NUR ---
RECEIVED REPORT FROM PLASTIC SHEETS SUPERVISOR RN. PATIENT IS AAOX2, HAS NO SIGNS AND SYMPTOMS OF ACUTE DISTRESS NOTED AT THIS TIME. PATIENT HAS IV TO THE RIGHT FOREARM 22G, INFUSING NS AT 100 ML/HR. SITE IS CLEAN, DRY, AND PATENT. REINFORCEMENT IS NEEDED TO ADVISE HIM THAT THE CALL LIGHT IS WITHIN REACH. TO CALL IF HE WANTS TO GET UP. BEDSIDE COMMODE IS AVAILABLE. BED IS IN LOWEST POSITION, SIDE RAILS UP X3, CALL LIGHT WITHIN REACH. WILL CONTINUE TO MONITOR.
[2018-02-03 08:00] VITALS: BP 160/88
[2018-02-03] MEDS: AMOXIL/CLAVULANATE 875/125 MG 1 TAB PO SCH ×2 (09:26→20:51)
[2018-02-03] MEDS: FOLIC ACID 1 MG TAB PO SCH (09:27)
[2018-02-03] MEDS: POTASSIUM CHLORIDE 10 MEQ TABER PO SCH (09:27)
[2018-02-03] MEDS: guaiFENesin 600 MG TABER PO SCH ×2 (09:27→20:54)
[2018-02-03] MEDS: MULTIVITAMIN 1 TAB PO SCH (09:28)
[2018-02-03] MEDS: THIAMINE 100 MG TAB PO SCH (09:28)
[2018-02-03] MEDS: BENAZEPRIL 20 MG TAB PO SCH ×2 (09:28→20:52)
[2018-02-03] MEDS: LACTULOSE 20 GM/30 ML UDC PO SCH (09:29)
[2018-02-03] MEDS: FLUTICASONE NASAL 50 MCG/ACTUATION 16 GM BTL NS SCH (09:29)
[2018-02-03 16:00] VITALS: BP 151/90
--- NOTE | 2018-02-03 16:05 | NUR ---
1515 MET WITH PT TO DISCUSS THAT [facility] WILL[facility] ACCEPT HIM FOR ADMISSION BUT REPORTED THAT THEY ARE UNABLE TO BILL MCR IT IS INDICATED THAT PT HAS AN OPEN WORKERS COMP CASE. PT STATED HE COULD NOT REMEMBER HAVING A WC CASE AND IF HE DID IT WAS A LONG TIME AGO. INFORMED PT THAT HE NEEDS TO CONTACT MEDICARE AND HAVE THE CASE CLOSED. PT INDICATED THAT HE WANTED THIS CUTTER GRINDER OPERATOR TO DO SO AND I DISCUSSED WITH HIM THAT IT IS HIS RESPONSIBILITY TO DO SO AND THAT NO ONE BUT HE THE BENEFICIARY CAN DO SO. DISCUSSED WITH PT THAT UNLESS HE TAKES THE RESPONSIBILITY TO DO SO HE CANNOT ACCESS HIS MCR BENEFITS. ALSO DISCUSSED WITH PT REGARDING HIS SUBSTANCE ABUSE AND NEED FOR REHAB. ASKED PT IF HE HAS AN ALTERNATE PLAN AND HE SAID HE WOULD GO HOME TO [facility] IN [place] WHERE HE LIVES. ALSO DISCUSSED WITH HIM THAT AT THIS TIME PT NOTES HAVE INDICATED THAT HE HAS ONLY BEEN ABLE TO AMBULATE SIX FEET AND THAT HE IS NOT BEING REALISTIC OF HIS LIMITATIONS AND ENCOURAGED HIM TO PARTICIPATE WITH PT. DISCUSSED THE MCR ISSUE WITH NORAH IN [place] AND SHE WILL GO AND SPEAK WITH PT AND GIVE SOME GUIDANCE ON HOW TO CONTACT MEDICARE.
--- NOTE | 2018-02-03 16:28 | NUR ---
02/03/2018 RD INITIAL ASSESSMENT COMPLETED PLEASE REFER TO NUTRITION ASSESSMENT UNDER CARE ACTIVITY FOR ESTIMATED NUTRITIONAL NEEDS. CONTINUE REGULAR DIET TOLERATED PROVIDE NUTRITION EDUCATION ON COUMADIN RD TO FOLLOW-UP IN 5-7 DAYS PATIENT IS LOW RISK. KALPANA CUM[address] RD
[2018-02-03] MEDS ORDERED: WARFARIN 5 MG, WARFARIN 2.5 MG PO SCH ×2 (17:00)
--- NOTE | 2018-02-03 17:08 | NUR ---
PHYSICAL THERAPY CO-SIGN The Physical Therapy Progress Notes documented by Sluice Tender have been reviewed. I CONCUR W/HAND III CUTTER NOTE, CONT PER TX PLAN Reviewed/Co-Signed by: Alissa Meza, PT Documentation Done by: DESIRE ARIAS, NICOL Addendum: 02/04/18 at 0911 by Alissa Meza PT Amended: Links added.
--- NOTE | 2018-02-03 19:15 | NUR ---
ENDORSED PATIENT TO DIRECTOR MOBILE NURSE FOR CONTINUITY OF CARE. PATIENT IN STABLE CONDITION.
--- NOTE | 2018-02-03 19:16 | NUR ---
PATIENT REPORT RECEIVED FROM MORNING NURSE AT BEDSIDE. PATIENT IS AWAKE AND ALERT. NO SIGNS AND SYMPTOMS OF DISTRESS NOTED. NO COMPLAINTS OF PAIN AT THIS TIME. IV SITE NOTED ON RIGHT ARM, IVF INFUSING WELL. PLAN OF CARE DISCUSSED WITH PATIENT. PATIENT VERBALIZED UNDERSTANDING, BUT REINFORCEMENT NEEDED. BED IN LOWEST POSITION, SIDE RAILS UP AND CALL LIGHT WITHIN REACH. WILL CONTINUE TO MONITOR.
[2018-02-03] MEDS: traZODone 50 MG TAB PO SCH (20:53)
--- NOTE | 2018-02-03 23:30 | NUR ---
CHECKED ON PATIENT. PATIENT IS ASLEEP. NO SIGNS AND SYMPTOMS OF DISTRESS NOTED. BREATHING EVEN AND UNLABORED. WILL CONTINUE TO MONITOR.
[2018-02-04] VITALS: BP 135/80
[2018-02-04 07:18] LABS: PROTHROMBIN TIME 21.5 secs (10.8-13.4)
--- NOTE | 2018-02-04 07:25 | NUR ---
PATIENT REPORT GIVEN TO MORNING NURSE AT BEDSIDE FOR CONTINUITY OF CARE. PATIENT IS IN STABLE CONDITION.
--- NOTE | 2018-02-04 07:25 | NUR ---
RECEIVED REPORT FROM NIGHTSHIFT NURSE. PATIENT IS AWAKE AT THIS TIME. PATIENT IS ORIENTED TO HIS NAME AND LOCATION. PATIENT BREATHING IS WITHIN NORMAL LIMITS AT THIS TIME. NO COMPLAINTS OF PAIN. PATIENT IS RESTING IN BED. UPDATED BOARD IN PATIENTS ROOM AND CHECKED ALARM OF BED. INSTRUCTED PATIENT TO CALL IF HE NEEDS ANYTHING. WILL CONTINUE TO MONITOR PATIENT.
[2018-02-04 08:00] VITALS: BP 130/79
--- NOTE | 2018-02-04 08:00 | NUR ---
PATIENT RESTING IN BED AT THIS TIME. NO COMPLAINTS OF PAIN. NO SIGNS OF RESPIRATORY DISTRESS. WILL CONTINUE TO MONITOR PATIENT.
[2018-02-04] MEDS: FOLIC ACID 1 MG TAB PO SCH (09:21)
[2018-02-04] MEDS: AMOXIL/CLAVULANATE 875/125 MG 1 TAB PO SCH (09:21)
[2018-02-04] MEDS: guaiFENesin 600 MG TABER PO SCH (09:21)
[2018-02-04] MEDS: MULTIVITAMIN 1 TAB PO SCH (09:21)
[2018-02-04] MEDS: THIAMINE 100 MG TAB PO SCH (09:22)
[2018-02-04] MEDS: FLUTICASONE NASAL 50 MCG/ACTUATION 16 GM BTL NS SCH (09:22)
[2018-02-04] MEDS: LACTULOSE 20 GM/30 ML UDC PO SCH (09:22)
[2018-02-04] MEDS: BENAZEPRIL 20 MG TAB PO SCH (09:26)
[2018-02-04] MEDS ORDERED: CYANOCOBALAMIN 1000 MCG/ML VIAL IM SCH (10:00)
--- NOTE | 2018-02-04 10:50 | NUR ---
PATIENT HAD A LARGE BOWEL MOVEMENT. PATIENT IS CURRENTLY WORKING WITH PHYSICAL THERAPY. PATIENT ABLE TO TOLERATE BEDSIDE EXERCISES. PATIENT IS UNSTEADY TO WALK. WILL CONTINUE TO MONITOR PATIENT.
--- NOTE | 2018-02-04 12:25 | NUR ---
PATIENT'S FRIEND IS AT BEDSIDE. PATIENT'S FRIEND AND PATIENT ARE TALKING. BREATHING IS WITHIN NORMAL LIMITS. NO SIGNS OF RESIPRATORY DISTRESS OR RESPIRATORY DEPRESSION. WILL CONTINUE TO MONITOR PATIENT.
--- NOTE | 2018-02-04 13:34 | NUR ---
FAXED INQUIRY ON 02/03/[address] [facility]. CARMEN CARVAJAL CANNOT TAKE PATIENT. FAXED INQUIRY TO [facility].
--- NOTE | 2018-02-04 14:45 | NUR ---
RECEIVED A CALL FROM THOMAS FROM [facility]. THE PATIENT HAS BEEN ACCEPTED. HE WILL GO TO ROOM 2B UNDER DR. ZUNIGA. PETEY MAGUIRE AWARE.
--- NOTE | 2018-02-04 14:48 | NUR ---
PATIENT RESTING IN BED. PATIENT ABLE TO EAT 100% OF HIS LUNCH. PATIENT SHOWS NO SIGNS OF RESPIRATORY DISTRESS OR RESPIRATORY DEPRESSION. NO COMPLAINTS OF PAIN. WILL CONTINUE TO MONITOR PATIENT.
--- NOTE | 2018-02-04 15:20 | NUR ---
1230 MET WITH PT AND HIS NEIGHBOR ABDIRASHID BARRERA WAS VISITING PT. DISCUSSED WITH PT THAT HE NEEDS TO CONTACT MEDICARE AND HAVE THE OPEN WC INSURANCE CASE THAT IS SHOWING IN MEDICARE [facility] CLOSED IN ORDER TO ACCESS SNF BENEFIT. PROVIDED PT WITH THE MEDICARE CONTACT NUMBER AND GAVE INSTRUCTION TO CALL. ABDIRASHID STATED THAT SHE WILL ASSIST PT WITH FOLLOWING THROUGH. PT DOES SEEM MORE ALERT AND STATED THAT HE DOES NOT WORK SO IT CANNOT BE WC CASE BUT HE DOES REMEMBER THAT HE FELL IN [place] IN FRONT OF A STORE AND HURT HIS ARM AND HE WAS SUPPOSED TO BE SCHEDULED FOR SOME PHYSICAL THERAPY BUT IT NEVER HAPPENED. ABDIRASHID VERIFIED THAT PT DOES NOT WORK AND INDEED DID HAVE A FALL. ABDIRASHID'S PHONE [phone] AND PT REQUESTED THAT SHE BE LISTED A CONTACT. ALSO INFORMED PT THAT THERE IS A POSSIBILITY THAT [facility] WILL ACCEPT HIM FOR ADMISSION AND HE IS IN AGREEMENT. 1500 PT CAN GO TO THE [facility]ICAL [facility] TO ROOM 2B UNDER DR Sheyla ARIAS. SCHEDULED CONTACT CLERK WITH [facility] FOR W/C TRANSPORT AND SPOKE WITH JOSH AND CONTACT CLERK WILL BE AT 5PM INFORMED JOSH WILL CALL BACK WITH [facility] AUTH #
--- NOTE | 2018-02-04 16:30 | NUR ---
CALLED TO GIVE REPORT FOR [facility]. TING ALLEN RECEIVED THE REPORT. GAVE MY CALLBACK NUMBER FOR ANY OTHER QUESTIONS. TOLD THEM THAT PATIENT'S EXTERNAL GRINDER TIME IS AT 1700.
[2018-02-04] MEDS ORDERED: WARFARIN 5 MG TAB PO SCH (17:00)
--- NOTE | 2018-02-04 17:40 | NUR ---
PATIENT SIGNED AND UNDERSTOOD ALL DISCHARGE INSTRUCTIONS. PATIENT GATHERED ALL BELONGINGS. ASSISTED PATIENT ONTO WHEELCHAIR WITH PREMIERE STAFF. DISCONTINUED IV LINE WITH CATHETER STILL INTACT. CUT OFF PATIENTS ARM BANDS. PATIENT SHOWS NO SIGNS OF RESPIRATORY DISTRESS OR RESPIRATORY DEPRESSION. PATIENT LEFT THE UNIT VIA WHEELCHAIR WITH ALL BELONGINGS AND DISCHARGE PAPERS.
[2018-02-05] MEDS ORDERED: CYANOCOBALAMIN 1000 MCG/ML VIAL IM SCH (09:00)
== END 2018-02-04 17:40 | DRG 896 ==
LOC: MED 20:34 → MIC 23:03 → MTU 01-31 06:08
PROVIDERS: ADMIT Family Medicine Sports Medicine; ATTEND Family Medicine Sports Medicine
DX: F10.239 Alcohol dependence with withdrawal, unspecified (principal); G93.41 Metabolic encephalopathy; N17.0 Acute kidney failure with tubular necrosis; D69.6 Thrombocytopenia, unspecified; E83.42 Hypomagnesemia; I82.4Z2 Acute embolism and thrombosis of unspecified deep veins of left distal lower extremity; N39.0 Urinary tract infection, site not specified; E11.9 Type 2 diabetes mellitus without complications; I10 Essential (primary) hypertension; E87.6 Hypokalemia; E80.6 Other disorders of bilirubin metabolism; J32.2 Chronic ethmoidal sinusitis; R31.9 Hematuria, unspecified; I25.10 Atherosclerotic heart disease of native coronary artery without angina pectoris; Z86.718 Personal history of other venous thrombosis and embolism; Z91.19 Patient's noncompliance with other medical treatment and regimen
CPT/HCPCS: 36415; 70450; 71045; 76700; 80048; 80053; 80305; 81001; 82140; 82607; 83036; 83735; 84100; 84436; 84443; 84479; 85025; 85610; 85730; 87081; 93005; 93971; 96374; 97110; 97116; 97140; 97530; 99285; A9153; G0480; G0482; J0696; J2001; J2060; J3411; J3420; J3475; J3480; J3490; J7030; J7060; Q0092

== ENCOUNTER 2019-01-19 18:41 | Emergency (ER) | payer OTHER ==
[~2019-01-19] VITALS: Ht 170.2 cm; Wt 77.1 kg
--- NOTE | 2019-01-19 18:42 | NUR ---
STEFFI GAN, CURRENTLY AWAITING BED
[2019-01-19 18:48] VITALS: BP 175/110
--- NOTE | 2019-01-19 19:14 | NUR ---
PT TO ER BED 9 FROM [facility]/ [facility].
[2019-01-19] MEDS ORDERED: ACETAMINOPHEN EXTRA STRENGTH 500 MG TAB PO ONE (19:25)
--- NOTE | 2019-01-19 19:26 | NUR ---
PT TO ED W C/O RT ARM PAIN S/P WITNESSED FALL. NO OBVIOUS DEFORMITY NOTED. PT HAS +ROM OF ARM. PT PLACED INTO BED, PENDING MD ALFRED.
[2019-01-19 20:02] VITALS: BP 168/96
--- NOTE | 2019-01-19 20:02 | NUR ---
Patient discharged with v/s stable. Written and verbal after care instructions given and explained. Patient verbalized understanding. Ambulatory with steady gait. All questions addressed prior to discharge. Advised to follow up with PMD.
== END 2019-01-19 20:02 | disposition home or self-care (01) ==
LOC: MED 18:41
DX: S80.211A Abrasion, right knee, initial encounter (principal); S50.311A Abrasion of right elbow, initial encounter; E11.9 Type 2 diabetes mellitus without complications; I10 Essential (primary) hypertension; Z79.899 Other long term (current) drug therapy; W19.XXXA Unspecified fall, initial encounter; Y93.89 Activity, other specified; Y92.89 Other specified places as the place of occurrence of the external cause; Y99.8 Other external cause status
CPT/HCPCS: 99282